=== PATIENT | female | born 1950 | race Caucasian/White ===

== ENCOUNTER → 2019-11-09 10:24 | Outpatient (CLI) | payer MEDICARE, OTHER, SELFPAY ==
[2019-11-09 11:53] LABS: Add Manual Diff / Slide Review NO; Basophils Absolute Auto 100 /uL (0-100); Basophils Percent Auto 0.8 % (0-2); Eosinophils Absolute Auto 200 /uL (0-450); Hematocrit 43.4 % (36-46); Hemoglobin 14.8 g/dL (12.0-16.0); Lymphocytes Absolute Auto 1000 /uL (1100-4500); Lymphocytes Percent Auto 10.5 % (25-40); Mean Corpuscular HGB Conc 34.1 % (30-36); Mean Corpuscular Hemoglobin 33.5 PG (26-34); Mean Corpuscular Volume 98.2 fL (80-100); Monocytes Absolute Auto 500 /uL (0-900); Monocytes Percent Auto 5.6 % (3-14); Neutrophils Absolute Auto 7300 /uL (1500-7000); Neutrophils Percent Auto 81.1 % (50-75); Platelet Count 260 X10^3/uL (150-400); Red Blood Cell Count 4.41 X10^6/uL (4.0-5.2); Red Cell Distribution Width 14.4 % (11.6-14.8); White Blood Cell Count 9.1 X10^3/uL (4.5-11.0)
== END ==
PROVIDERS: PCP Physician Assistant; Referring Provider Orthopaedic Surgery; Visit Provider Orthopaedic Surgery
DX: Z01.818 Encounter for other preprocedural examination (principal); Z01.812 Encounter for preprocedural laboratory examination
CPT/HCPCS: 36415; 85025; 93005

== ENCOUNTER → 2019-11-17 15:16 | Outpatient (CLI) | payer MEDICARE, OTHER, SELFPAY ==
[2019-11-18 22:37] LABS: COVID19 Sendout Not Detected (Not Detect)
== END ==
PROVIDERS: PCP Physician Assistant; Visit Provider Physician Assistant
DX: Z11.59 Encounter for screening for other viral diseases (principal)
CPT/HCPCS: 87635

== ENCOUNTER 2019-11-20 08:30 | Day surgery (SDC) | payer MEDICARE, OTHER, SELFPAY ==
[2019-11-15 12:39] VITALS: BMI 18.3
[2019-11-20] VITALS (14 sets, daily range): BP systolic 118–144; BP diastolic 55–81; PULSE 103–122; RESP 13–20; TEMP 36.6–37; O2SAT 93–97; BMI 18.3
--- NOTE | 2019-11-20 | DI.RAD.S_ITS ---
PROCEDURE: XR LUMBAR SPINE 1V INDICATIONS: Intraoperative localization TECHNIQUE: 1 views of the lumbar spine were acquired. COMPARISON: [facility], MR, MR LUMBAR SPINE WITHOUT CONTRAST, 08/26/2019, 10:20. FINDINGS: Intraoperative images are present with localization overlying the L4 and L5 spinous processes. IMPRESSION: Intraoperative localization as above. Dictated by: Shania Saba M.D. on 11/20/2019 at 11:31 Approved by: Shania Saba M.D. on 11/20/2019 at 11:32
--- NOTE | 2019-11-20 07:16 | PM.PREOP ---
Pre-operative Note Interval Note History & Physical reviewed/Exam performed by Physician: Yes Changes to H&P: Yes H&P completed within 30 days and has changed as indicated here:: She has a 4 cm firm area on the left arm around a bug bite with approximately 10 x 25 cm cellulitis. Surgery will be canceled due to risk of infection from this and I will put her on antibiotics and try to reschedule the next few weeks.
[2019-11-20] MEDS: LACTATED RINGERS 1,000 ML 42 ML IV (08:45)
--- NOTE | 2019-11-20 08:53 | PM.PREOP ---
Pre-operative Note COVID-19 COVID-19 status: Negative Result date/Date tested (Pos, Neg/Pending): 11/17/19 Interval Note History & Physical reviewed/Exam performed by Physician: Yes Changes to H&P: No
[2019-11-20] MEDS: CEFAZOLIN 2 GM/100 ML FROZ.PIGGY IV ×2 (09:17→17:18)
--- NOTE | 2019-11-20 09:49 | SUR.OPER ---
Prone on spine table, head in foam head support, padded chest and pelvic supports, gel pad at knees, lower legs supported by pillows; nipples, genitalia and toes free of pressure, arms secured on foam padded arm boards at <90 degrees abduction. Tape over blanket at thigh secured to table.
[2019-11-20] MEDS: THROMBIN (RECOMBINANT) 5,000 UNIT VIAL 5000 UNIT TOP (10:06)
[2019-11-20] MEDS: BUPIVACAINE 0.25% (PF) 8 ML, fentaNYL 100 MCG INJ (10:08)
[2019-11-20] MEDS: VANCOMYCIN 1,000 MG VIAL 1000 MG TOP (10:08)
[2019-11-20] MEDS: SODIUM CHLORIDE 0.9% 1,000 ML, GENTAMICIN 80 MG IRR (10:10)
--- NOTE | 2019-11-20 11:33 | P.OP_ITS ---
Operative Date/Time/Diagnoses Date of procedure: 11/20/19 Time of procedure: 11:33 Pre-op diagnosis: Lumbar stenosis with radiculopathy Post-op diagnosis: same Procedure & Clinicians Procedure: L2-3, L3-4, L4-5 laminectomies Use of microscope Placement of epidural catheter Same procedure as scheduled: Yes Indications: [age] year old female with intractable pain from stenosis. They had failed conservative management and requested operative intervention. Risks and benefits of surgery were discussed and appropriate consents were obta ined. Surgeon: Frank Mccloud Airline Flight Attendant: Kandy Toribio Anesthesia Type: General Operative Notes Findings: None Closure Type: primary Specimen(s): none sent Applied: catheter Estimated Blood Loss (mL): 10 Procedure in detail: Patient was brought to the operating room and intubated on the table. A time-out was performed. There were rolled over the well-padded prone position on the Eitan table. The back was prepped and draped in standard sterile fashion. Preoperative antibiotics were given. Using fluoroscopy, a 4 cm incision was made to the well-marked left of the midline at the L4-5 level. We used Bovie to come down to and split the fascia. We then used the [employer] MaX[employer] dilators with fluoroscopy and then opened our retractors. The soft tissue was cleared off with Bovie, a marker was placed, an x-ray was taken to confirm positioning. We then brought in the microscope. A combination of high-speed bur and Kerrison were used to perform a laminectomy from the left-sided L4-5. We carefully depressed the dura and reached across to the opposite side to clear out the central canal. We cleared out the neural foramen. We then moved our retractor up to the L3-4 level. Again a laminectomy was performed decompressing the central canal and foramen. We then went up to the L2-3 level and performed laminectomy decompressing the central canal and foramen. At the end of each level we could sweep the right ankle ball probe cephalad, caudally and into the neural foramen and everything was open. Once everything was adequately decompressed, the wound was copiously irrigated. An epidural catheter was filled with 100 mcg of fentanyl and 8 mL of 0.25% Marcaine. The dura was carefully depressed under the laminotomy site and the catheter was advanced 6 cm cephalad. The retractor was removed and the fascia was closed. The epidural catheter was then injected without resistance and removed. Vancomycin powder was placed in the wound. Superficial and skin were closed. Sterile dressing was placed. The patient was then rolled over, transferred to the stretcher, and brought to recovery room without complications. Complications: none Post-operative Condition: stable Disposition: PACU Plan for aftercare: Up with physical therapy. Overnight admission and plan to discharge tomorrow.
[2019-11-20] MEDS: ONDANSETRON 4 MG/2 ML INJ IV (11:42)
--- NOTE | 2019-11-20 11:52 | SUR.PHASEI ---
Assumed care from LAKHWINDER Fernández. Pt still has slight nausea, delfina duque on chest, pt states this is helping. Had been medicated by LAKHWINDER Fernández
[2019-11-20] MEDS: METOCLOPRAMIDE 10 MG/2 ML INJ IV (12:00)
--- NOTE | 2019-11-20 12:28 | PC.NURSE ---
Day shift: Pt on unit at approx 1230 from PACU.
--- NOTE | 2019-11-20 12:28 | SUR.PHASEI ---
Report called to hussain Mcgraw transported up to room 216 on o2 at 2/l nasal [id number]. Pt left with LAKHWINDER Latham in stable condition.
[2019-11-20] MEDS: LACTATED RINGERS 1,000 ML 125 ML IV ×2 (13:31→21:43)
--- NOTE | 2019-11-20 14:30 | PT.IIE ---
Current Diagnoses Other forms of scoliosis, lumbar region (11/20/19) Spinal stenosis, lumbar region with neurogenic claudication (11/20/19) Surgery Performed Operation Date: 11/20/19 12:15 Actual Procedures p L2-5 Laminectomies - Frank Mccloud MD Medical History (Last Updated 11/15/19 @ 12:43 by Merry Randall RN) Lumbar stenosis with neurogenic claudication (Acute) Other forms of scoliosis, lumbar region (Acute) Physical Therapy Inpatient Evaluation/Re-Eval M1 PT/OT-IP Prior Functional Status Start: 11/20/19 16:00 Freq: NEEDED Status: Active Protocol: Document 11/20/19 16:00 [facility] (Rec: 11/20/19 16:30 [facility] [id number]) Medical Review Prior Functional Status Medical History Reviewed Yes Diet/Fluid Consistency Regular,Thin Liquids Communication Independent. Activities of Daily Living and IADL's Pt states not able to stand for long periods of time and needing to sit between tasks for IADL needs. Pt states was completely independent for all ADl needs, drove, and took her own medications. Social History Household Members spouse Living Arrangements House Number of Stairs To Enter/Railing? 3 steps to enter with no rails . Home Environment Walk in Shower,Tub/Shower Home Equipment Front Wheel Walker,Straight Cane,Long Handled Shoe Horn, Grab Bars In Shower Additional Social History Comment Pt states still works for her . M1 PT/OT-IP Prior Functional Status Start: 11/20/19 17:18 Freq: NEEDED Status: Active Protocol: Document 11/20/19 14:30 AB (Rec: 11/20/19 17:28 AB [id number]) Medical Review Prior Functional Status Medical History Reviewed Yes Diet/Fluid Consistency Regular,Thin Liquids Communication able to make needs known Mobility and Gait pt stated that she is independent with all mobilities and ambulation without AD. Able to drive and still works . 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 Activities of Daily Living and IADL's Per OT note: Pt states not able to stand for long periods of time and needing to sit between tasks for IADL needs. Pt states was completely independent for all ADl needs, drove, and took her own medications. Social History Household Members spouse Living Arrangements House Number of Floors (Floors) One Floor Number of Stairs To Enter/Railing? 3 steps to enter with no rails . 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 M2 PT-IP Current Condition Start: 11/20/19 17:18 Freq: NEEDED Status: Active Protocol: Document 11/20/19 14:30 AB (Rec: 11/20/19 17:28 AB [id number]) Physical Therapy Current Condition Current Condition Evaluation Date 11/20/19 Treatment Diagnosis s/p L2-5 laminectomies; difficulty in walking Onset Date 11/20/19 Precautions Lumbar Precautions Log Roll,No Twisting,Limit Bending,Lifting Restriction of 10 lbs,Gait Belt above Incisional Area Weight Bearing Status Weight Bearing Status Weight Bear as Tolerated M3 PT-IP Subjective Start: 11/20/19 17:18 Freq: NEEDED Status: Active Protocol: Document 11/20/19 14:30 AB (Rec: 11/20/19 17:28 AB [id number]) Subjective Physical Therapy Visit Type Type Initial Evaluation Visit Start Time 14:30 Visit Stop Time 15:05 Total Visit Minutes 35 Number of PLASTER FOREMAN Visits 0 Physical Therapy Visit Comments Patient Comments pt agreed to do PT Therapy Pain Assessment Pain Present Pain Present Denied Pain M4 PT-IP Mobility and Gait Start: 11/20/19 17:18 Freq: NEEDED Status: Active Protocol: Document 11/20/19 14:30 AB (Rec: 11/20/19 17:28 AB [id number]) PT-Bed Mobility Assessment Rolling Type of Rolling Log Rolling Level of Assist Standby Assistance Supine to Sit Supine to Sit Standby Assistance PT-Transfer Assessment Sit to and From Stand Sit to and from Stand Contact Guard Assistance,1 Person Assistance,Use of Upper Extremities Equipment Transfer Assistive Device Gait Belt,Front Wheeled Walker Orthotic/Prosthetic Devices or Brace: No Transfers Transfer Destination Chair Transfer Technique ambulated using FWW Transfer Ability Level of Assist Contact Guard Assistance,1 Person Assistance,Use of Upper Extremities Comments Mobility Comments educated pt on back precautions and log roll bed mobility. 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 BP supine: 142/69. completed supine to sit SBA and cues for techniques. pt was able sit on EOB SBA. c/o slight dizziness. BP: 127/71. pt was able to sit for a few more minutes and stated that dizziness dissipated. BP checked: 128/71. pt completed sit to stand CGA and ambulated in room ~ 30 ft and agreed to sit up on chair. positioned pt on chair. call light and table placed within reach. Gait Assessment Gait Gait Assistance Required: Contact Guard Assist Distance (Feet) 30 Able to Maintain Weight Bearing Status Yes During Gait Assistive Devices Assistive Device Gait Belt,Front Wheeled Walker Orthotic/Prosthetic Devices or Brace: No Gait Deviations General Gait Pattern Antalgic,Decreased Stride Length,Decreased Feet Clearance Factors Limiting Gait Function Factors Limiting Gait Function Decreased Activity Tolerance, Decreased Strength,Limited Range of Motion,Poor Balance, Poor Safety Awareness PT-Balance Assessment Sitting Balance and Reactions Static Sitting Balance Ability Good Dynamic Sitting Balance Ability Good Standing Balance and Reactions Static Standing Balance Ability Fair Dynamic Standing Balance Ability Fair Device Used FWW M5 PT-IP Objective Assessments Start: 11/20/19 17:18 Freq: NEEDED Status: Active Protocol: Document 11/20/19 14:30 AB (Rec: 11/20/19 17:28 [id number]) Orientation Orientation/Cognition Level of Alertness Alert Orientation Name,Place,Situation Language Function Ability No Deficits Noted Safety Awareness Decreased Safety Awareness Memory Description No Deficits Noted Gross Range of Motion Lower Extremity ROM Assessment Within Functional Limits Strength Lower Extremity Strength Assessment Within Functional Limits Sensation Assessment Sensation Gross Sensation WNL Muscle Tone Muscle Tone WNL Yes M6 PT-IP Treatment Start: 11/20/19 17:18 Freq: NEEDED Status: Active Protocol: Document 11/20/19 14:30 AB (Rec: 11/20/19 17:28 AB [id number]) Physical Therapy Treatment Education Education Provided Precautions,Weight Bearing Status,Post-Op Packet,Safety M7 PT-IP Assessment and Plan Start: 11/20/19 17:18 Freq: NEEDED Status: Active Protocol: Document 11/20/19 14:30 AB (Rec: 11/20/19 17:28 AB [id number]) PT Summary Assessment and Plan Potential Rehabilitation Potential Good Status of Condition at Evaluation Stable Summary Impairments ROM,Strength,Balance,Bed Mobility,Transfers,Gait, Activity Tolerance Assessment Summary pt requires CGA with mobility using FWW and plans to go home with spouse to assist her. will conduct caregiver training when appropriate. pt also has to complete stair climbing training prior to d/c home. will continue to assess progress. Goals Bed Mobility Goal Independent Transfer Goal Independent,Front Wheeled Walker Gait Goal Independent,Front Wheel Walker Gait Distance 200 Other Goals up/down 3 steps using SPC/INVESTIGATIVE SHOPPER CGA Days to Meet Goals 5 Frequency of Treatment Frequency Of Treatment Twice a Day Treatment Plan Physical Therapy Treatment Plan Bed Mobility Training,Transfer Training,Gait Training, Therapeutic Exercise,Balance Retraining,Post Op Education, Discharge Planning,Hot or Cold Pack,Neuromuscular Re-ed, Coordination Retraining,Manual Therapy Recommendations To Nursing Amount of Assist Needed 1 Person Assist Discharge Recommendations PT Discharge Recommendations Home with Assistance Transportation Needs at Discharge Private Vehicle
[2019-11-20] MEDS: HYDROCODONE/ACET 5/325 TABLET 1 TAB PO (16:00)
--- NOTE | 2019-11-20 16:00 | OT.IP.EVAL ---
Current Diagnoses Other forms of scoliosis, lumbar region (11/20/19) Spinal stenosis, lumbar region with neurogenic claudication (11/20/19) Surgery Performed Operation Date: 11/20/19 12:15 Actual Procedures p L2-5 Laminectomies - Frank Mccloud MD Past Medical History (Last Updated 11/15/19 @ 12:43 by Merry Randall RN) Lumbar stenosis with neurogenic claudication (Acute) Other forms of scoliosis, lumbar region (Acute) Occupational Therapy Inpatient Evaluation/Re-Eval M1 PT/OT-IP Prior Functional Status Start: 11/20/19 16:00 Freq: NEEDED Status: Active Protocol: Document 11/20/19 16:00 [facility] (Rec: 11/20/19 16:30 [facility] [id number]) Medical Review Prior Functional Status Medical History Reviewed Yes Diet/Fluid Consistency Regular,Thin Liquids Communication Independent. Activities of Daily Living and IADL's Pt states not able to stand for long periods of time and needing to sit between tasks for IADL needs. Pt states was completely independent for all ADl needs, drove, and took her own medications. Social History Household Members spouse Living Arrangements House Number of Stairs To Enter/Railing? 3 steps to enter with no rails . Home Environment Walk in Shower,Tub/Shower Home Equipment Front Wheel Walker,Straight Cane,Long Handled Shoe Horn, Grab Bars In Shower Additional Social History Comment Pt states still works for her . M2 OT-IP Current Condition Start: 11/20/19 16:00 Freq: Status: Active Protocol: Document 11/20/19 16:00 [facility] (Rec: 11/20/19 16:30 [facility] [id number]) Occupational Therapy Current Condition Current Condition Evaluation Date 11/20/19 Treatment Diagnosis Lumbar stenosis, s/p L2-3, L3- 4, L4-5 laminectomies Diagnosis Onset Date 11/20/19 Post Operative Precautions Lumbar Precautions Log Roll,No Twisting,Limit Bending,Lifting Restriction of 10 lbs,Gait Belt above Incisional Area M3 OT- IP Subjective and Pain Start: 11/20/19 16:00 Freq: Status: Active Protocol: Document 11/20/19 16:00 [facility] (Rec: 11/20/19 16:30 [facility] [id number]) OT- Subjective Occupational Therapy Visit Type Type Initial Evaluation Visit Start Time 15:31 Visit Stop Time 16:00 Total Visit Minutes 29 Notes Pt's present in the room. Occupational Therapy Visit Comments Patient Comments Pt sitting up in the recliner and agreed to do OT eval. Patient/Caregiver Goals TO go home. OT Pain Assessment Pain When Pain Assessed At Rest Pain Present Pain Present Pain Reported Location Back Intensity 3 Scale Used Numeric (0 - 10) M4 OT- IP ADL's Start: 11/20/19 16:00 Freq: Status: Active Protocol: Document 11/20/19 16:00 [facility] (Rec: 11/20/19 16:30 [facility] [id number]) OT [id number] Comments OT Self-Feeding Comments NOt at meal time. OT ADL-Grooming Comments OT Grooming Comments Pt states already did all her grooming needs prior. OT ADL-Oral Care Comments Oral Care Comments Educated pt to spit into a cup or lean at her hips to spit into the sink to ensure follow through of back precautions. OT ADL-Dressing General Eval Lower Body Dressing Ability Maximum Assistance Areas Needing Assistance Socks Comments OT Dressing Comments Educated pt on use of therapist physical and socks aid to help dylan/ doff her socks. Pt states already has a long handle shoe horn at home. In addition pt 's to assist as needed . OT ADL-Toileting General Evaluation Toileting Ability Standby Assistance Comments OT Toileting Comments Pt able to lean to wipe however to go over possible option of getting a toilet paper aid tomorrow. Pt tried to stand and wipe but ended up twisting too much to be able to reach appropriately. Suggested for pt wear pads at night to ensure that she does not have to chahal to the toilet. Pt states she has to get up twice at night. OT ADL-Bathing Comments OT Bathing Comments Pt may benefit from a shower chair. Pt has a tub/shower with grab bar or 's bathroom in a walk in shower. To try showering tomorrow for OT to best determine equipment needs. M5 OT- IP IADL's Start: 11/20/19 16:00 Freq: Status: Active Protocol: Document 11/20/19 16:00 [facility] (Rec: 11/20/19 16:30 [facility] [id number]) OT-Instrumental Activities of Daily Living Home Safety Awareness Awareness of Need for Assistance at Home Good Awareness Ability to Problem Solve Emergency Able to Problem Solve Situations Money Management Money Management Comments Pt's does all the bill paying. Meal Preparation Meal Preparation Comments Pt to assist for needs . Mangle Catcher Mangle Catcher Comments Pt to assist for needs . M6 OT- IP Functional Cognition Start: 11/20/19 16:00 Freq: Status: Active Protocol: Document 11/20/19 16:00 [facility] (Rec: 11/20/19 16:30 [facility] [id number]) Cognitive Factors Limiting Selfcare Function Cognitive Ability Level of Alertness Alert Patient Orientation Name,Age,Birthday,Month,Date, Year,Day of Week,Place, Situation Attention Span Ability Capable of Focused Attention, Capable of Sustained Attention Ability to Follow Commands Able to Follow Multi-Step Commands Memory Description No Deficits Noted Safety Awareness Decreased Recall of Precautions,Decreased Ability to Apply Precautions Cognitive Comments Cognitive Assessment Comments Pt initially not able to remember all back precautions initially and then able to recall all. Pt tends to twist a little when trying to demonstrate wiping on the toilet. OT- Vision and Hearing OT- Hearing Assessment OT- Hearing Assessment WFL OT- Vision Assessment Visual Acuity Glasses All The Time M7 OT- IP Mobility and Balance Start: 11/20/19 16:00 Freq: Status: Active Protocol: Document 11/20/19 16:00 [facility] (Rec: 11/20/19 16:30 [facility] [id number]) OT-Transfer Assessment Sit to and From Stand Sit to and from Stand Contact Guard Assistance Transfers Transfer Ability Contact Guard Assistance Technique Transfer Destination Bed,Chair,Toilet Transfer Technique Stand Step Pivot Devices Transfer Assistive Devices Gait Belt,Front Wheeled Walker Comments Mobility Comments CGA to stand to FWW and able to walk to the bathroom and back to the recliner with good safety. OT- Balance Assessment Sitting Balance and Reactions Static Sitting Balance Ability Normal Dynamic Sitting Balance Ability Good Standing Balance and Reactions Static Standing Balance Ability Good M8 OT- IP Objective Assessments Start: 11/20/19 16:00 Freq: Status: Active Protocol: Document 11/20/19 16:00 [facility] (Rec: 11/20/19 16:30 [facility] [id number]) OT Gross Range of Motion Upper Extremity Range of Motion Assessment Within Functional Limits OT Strength Upper Extremity Strength Assessment Within Functional Limits OT-Muscle Tone Assessment Muscle Tone WNL Yes M9 OT- IP Assessment and Plan Start: 11/20/19 16:00 Freq: Status: Active Protocol: Document 11/20/19 16:00 [facility] (Rec: 11/20/19 16:30 [facility] [id number]) OT Summary Assessment and Plan Potential Rehabilitation Potential Good Analytic Complexity at Evaluation Low Summary OT Impairments Pain,Balance,Functional Mobility,Dressing,Toileting, Bathing,Toilet Transfers, Shower Transfers,Activity Tolerance Progress Towards Goals Progressing Toward Goals Assessment Summary Pt low complexity s/p L2-3, L3 -4, L4-5 laminectomies with main barriers of steps, needing assist for LB dressing , and needing occasional reminders to incorporate back precautions. Pt will benefit to continue to work with OT on back precautions and equipment needs for ADl's tomorrow. OT to do showering with pt tomorrow in addition to caregiver training with pt. Pt to go home with to assist when medically stable. Goals Grooming Goal Independent Dressing Goal Independent Toileting Goal Independent Bathing Goal Independent Toilet Transfer Goal Independent Shower Transfer Goal Independent Patient/Caregiver Education Goal Caregiver Independent Assisting Patient Days to Meet Goals 3 Frequency of Treatment Frequency Of Treatment Once a Day Treatment Plan OT Treatment Plan ADL Training,Functional Mobility,Patient/Family Education,Discharge Planning Other Treatment Recommendations and Next Shower and caregiver training Treatment Focus Discharge Recommendations OT Discharge Recommendations Home with Assistance Home Equipment Needs Shower chair, LB dressing equipment Transportation Needs at Discharge Private Vehicle
[2019-11-20] MEDS: INSULIN ASPART 100 UNIT/ML INSULN PEN SUBCUT ×2 (17:31→20:28)
[2019-11-20] MEDS: GABAPENTIN 600 MG TABLET PO (20:29)
[2019-11-20] MEDS: METFORMIN HCL 500 MG TABLET PO (20:29)
[2019-11-20] MEDS: POTASSIUM CHLORIDE 10 MEQ TAB PO (20:29)
[2019-11-20] MEDS: NAPROXEN 250 MG TABLET 500 MG PO (20:29)
[2019-11-20] MEDS: DOCUSATE 100 MG CAPSULE PO (20:29)
[2019-11-20] MEDS: SENNOSIDES 8.6 MG TABLET 17.2 MG PO (20:29)
[2019-11-20] MEDS: HYDROCODONE/ACET 5/325 TABLET 2 TAB PO (21:33)
[2019-11-21] MEDS: CEFAZOLIN 2 GM/100 ML FROZ.PIGGY IV (00:48)
[2019-11-21 03:22] VITALS: BP 122/74; PULSE 102; RESP 16; TEMP 36.2; O2SAT 94
[2019-11-21 05:57] LABS: Hematocrit 34.5 % (36-46); Hemoglobin 11.6 g/dL (12.0-16.0)
--- NOTE | 2019-11-21 07:43 | PM.PNPO.1 ---
Subjective Subjective Date Patient Seen: 11/21/19 Time Patient Seen: 07:43 Interval history: She is doing great. Pain /. Feels tremendously better in the left leg. She has already been out of bed twice with PT yesterday. Exam Vital Signs (past 8 hours): - 11/21/19 03:22 Temperature 97.1 F L Pulse Rate 102 H Respiratory Rate 16 Blood Pressure 122/74 Pulse Oximetry 94 Oxygen Delivery Method Room Air Oxygen Flow Rate 0 Const Orientation: alert and oriented x3 Back/Spine/Pelvis Other: Mild quarter-size drainage. 5/5 motor both lower extremities. Objective Labs Result Diagrams: 11/21/19 05:27 Labs: Laboratory Results - last 24 hr 11/21/19 05:27 Hgb 11.6 L Hct 34.5 L Assessment & Plan Post-op Postoperative Procedures: Procedures Operation Date: 11/20/19 12:15 Actual Procedures Side Surgeon p L2-5 Laminectomies Frank Mccloud MD She is doing great. Mobilize again with physical therapy and discharged home today.
[2019-11-21 07:58] VITALS: BP 147/62; PULSE 101; RESP 16; TEMP 37.1; O2SAT 95
[2019-11-21] MEDS: PANTOPRAZOLE 40 MG TABLET PO (08:33)
[2019-11-21 08:34] VITALS: BP 147/62; PULSE 101
[2019-11-21] MEDS: AMLODIPINE 5 MG TABLET PO (08:34)
[2019-11-21] MEDS: INSULIN ASPART 100 UNIT/ML INSULN PEN SUBCUT (08:35)
[2019-11-21] MEDS: FOLIC ACID 1 MG TABLET PO (08:36)
[2019-11-21] MEDS: DOCUSATE 100 MG CAPSULE PO (08:36)
[2019-11-21] MEDS: NAPROXEN 250 MG TABLET 500 MG PO (08:36)
[2019-11-21] MEDS: GABAPENTIN 600 MG TABLET PO (08:36)
[2019-11-21] MEDS: METFORMIN HCL 500 MG TABLET PO (08:37)
[2019-11-21] MEDS: TRIAMTERENE/HCTZ 37.5/25 TABLET 1 CAP PO (08:38)
[2019-11-21] MEDS: predniSONE 2.5 MG TABLET PO (08:39)
[2019-11-21] MEDS: HYDROCODONE/ACET 5/325 TABLET 2 TAB PO (08:47)
--- NOTE | 2019-11-21 09:16 | PC.NURSE ---
Addendum entered by Sharon Klein R.N. 11/21/19 13:00: Discharge summary packet reviewed with pt and her , Aware of S/S of infection, pain management, prescription and pain management review, dressing change on TuesdayNovember 24. No further voiced concerns. Pt states has her follow up appointments already made. Pt left unit with all belongings at 1300 via wheelchair in no distress with [employer] escort. Pt's present to drive pt home. Original Note: Day Shift- Pt A&OX4, able to make her needs known using call light. Stated having 1-2/10 dull aching pain to lower back surgical incision area. Around 0845, pt c/o 3/10 aching pain, starting to increase. [place] 2 tabs given as pt plans to have shower with OT assist and PT stair training this morning. Lower back dressing changed per order. Old dressing removed for approx 25% bloody shadowing drainage.. Incision well approximated with sutures intact with medicated gauze left over incision. No S/S of infection. Area cleansed with NS and pat dry with gauze. Coversite X1 applied, pt tolerated well. Urinary catheter removed at 0725, pt has voided qs X1. No further voiced concerns, expects to go home later today after therapies complete. Pt states her will be coming to pick her up. Pt aware of prescriptions that were sent electronically to [facility] in [place].
--- NOTE | 2019-11-21 09:22 | OT.IP.TRT ---
Current Diagnoses Other forms of scoliosis, lumbar region (11/20/19) Spinal stenosis, lumbar region with neurogenic claudication (11/20/19) Surgery Performed Operation Date: 11/20/19 12:15 Actual Procedures p L2-5 Laminectomies - Frank Mccloud MD Occupational Therapy Treatment Note M2 OT-IP Current Condition Start: 11/20/19 16:00 Freq: Status: Active Protocol: Document 11/20/19 16:00 [facility] (Rec: 11/20/19 16:30 [facility] [id number]) Occupational Therapy Current Condition Current Condition Evaluation Date 11/20/19 Treatment Diagnosis Lumbar stenosis, s/p L2-3, L3- 4, L4-5 laminectomies Diagnosis Onset Date 11/20/19 Post Operative Precautions Lumbar Precautions Log Roll,No Twisting,Limit Bending,Lifting Restriction of 10 lbs,Gait Belt above Incisional Area M3 OT- IP Subjective and Pain Start: 11/20/19 16:00 Freq: Status: Active Protocol: Document 11/21/19 09:47 [facility] (Rec: 11/21/19 09:56 [facility] [id number]) OT- Subjective Occupational Therapy Visit Type Type Treatment Note Visit Start Time 08:43 Visit Stop Time 09:22 Total Visit Minutes 39 Occupational Therapy Visit Comments Patient Comments Pt wanting to shower. Patient/Caregiver Goals To go home. OT Pain Assessment Pain When Pain Assessed At Rest Pain Present Pain Present Pain Reported Location Back Intensity 3 Scale Used Numeric (0 - 10) M4 OT- IP ADL's Start: 11/20/19 16:00 Freq: Status: Active Protocol: Document 11/21/19 09:47 [facility] (Rec: 11/21/19 09:56 [facility] [id number]) OT [id number] Comments OT Self-Feeding Comments NOt at meal time. OT ADL-Dressing General Eval Upper Body Dressing Ability Independent Lower Body Dressing Ability Minimal Assistance Comments OT Dressing Comments Pt able to use LB dressing equipment issued of card setter and sock aid. Pt just needing assist to help line up her socks on the sock aid initially. Pt goo awareness to dylan her weaker side first. Pt states dos wear an ankle brace but did not bring it to the hospital. OT ADL-Toileting Devices Toileting Assistive Devices Commode Comments OT Toileting Comments Pt able to wipe appropriately today. OT ADL-Bathing Bathing Type Bathing Type Shower General Evaluation Bathing Ability Minimal Assistance Comments OT Bathing Comments Pt able to do most of shower while seated with only assist for her back. Pt states able to borrow a shower chair form a friend to use at home in addition, pt's will assist. M5 OT- IP IADL's Start: 11/20/19 16:00 Freq: Status: Active Protocol: Document 11/20/19 16:00 [facility] (Rec: 11/20/19 16:30 [facility] [id number]) OT-Instrumental Activities of Daily Living Home Safety Awareness Awareness of Need for Assistance at Home Good Awareness Ability to Problem Solve Emergency Able to Problem Solve Situations Money Management Money Management Comments Pt's does all the bill paying. Meal Preparation Meal Preparation Comments Pt to assist for needs . Powder Room Attendant Powder Room Attendant Comments Pt to assist for needs . M6 OT- IP Functional Cognition Start: 11/20/19 16:00 Freq: Status: Active Protocol: Document 11/21/19 09:47 [facility] (Rec: 11/21/19 09:56 [facility] [id number]) Cognitive Factors Limiting Selfcare Function Cognitive Ability Level of Alertness Alert Patient Orientation Name,Age,Birthday,Month,Date, Year,Day of Week,Place, Situation Attention Span Ability Capable of Focused Attention, Capable of Sustained Attention Ability to Follow Commands Able to Follow Multi-Step Commands Memory Description No Deficits Noted Safety Awareness Decreased Ability to Apply Precautions Cognitive Comments Cognitive Assessment Comments VC to slow down, pt tends not to remember no twisting. M7 OT- IP Mobility and Balance Start: 11/20/19 16:00 Freq: Status: Active Protocol: Document 11/21/19 09:47 [facility] (Rec: 11/21/19 09:56 [facility] [id number]) OT-Transfer Assessment Sit to and From Stand Sit to and from Stand Standby Assistance Transfers Transfer Ability Standby Assistance Technique Transfer Destination Bed,Chair,Shower Stall,Toilet Devices Transfer Assistive Devices Gait Belt,Front Wheeled Walker Comments Mobility Comments SBA with FWW. Pt able to take a few steps without the walker but encouraged her to just keep using the FWW for safety . OT- Balance Assessment Sitting Balance and Reactions Static Sitting Balance Ability Normal Dynamic Sitting Balance Ability Normal Standing Balance and Reactions Static Standing Balance Ability Good Dynamic Standing Balance Ability Fair M8 OT- IP Objective Assessments Start: 11/20/19 16:00 Freq: Status: Active Protocol: Document 11/20/19 16:00 [facility] (Rec: 11/20/19 16:30 [facility] [id number]) OT Gross Range of Motion Upper Extremity Range of Motion Assessment Within Functional Limits OT Strength Upper Extremity Strength Assessment Within Functional Limits OT-Muscle Tone Assessment Muscle Tone WNL Yes M9 OT- IP Assessment and Plan Start: 11/20/19 16:00 Freq: Status: Active Protocol: Document 11/21/19 09:47 [facility] (Rec: 11/21/19 09:56 [facility] [id number]) OT Summary Assessment and Plan Potential Rehabilitation Potential Good Analytic Complexity at Evaluation Low Summary OT Impairments Pain,Balance,Functional Mobility,Dressing,Bathing Progress Towards Goals Progressing Toward Goals Assessment Summary Pt doing well and able to do bed mobility and transfer with SBA now. Pt with LB dressing equipment able to do most of her dressing needs. Pt still needing safety reminders to incorporate her back precautions during her needs and cues to slow down. Pt has a supportive to assist her at home. Therefore pt looking to go home later today . Goals Days to Meet Goals 1 Frequency of Treatment Frequency Of Treatment Once a Day Treatment Plan OT Treatment Plan Patient/Family Education, Discharge Planning Discharge Recommendations OT Discharge Recommendations Home with Assistance Transportation Needs at Discharge Private Vehicle
--- NOTE | 2019-11-21 10:06 | PT.IPTN ---
Current Diagnoses Other forms of scoliosis, lumbar region (11/20/19) Spinal stenosis, lumbar region with neurogenic claudication (11/20/19) Surgery Performed Operation Date: 11/20/19 12:15 Actual Procedures p L2-5 Laminectomies - Frank Mccloud MD Physical Therapy Treatment Note M2 PT-IP Current Condition Start: 11/20/19 17:18 Freq: NEEDED Status: Discharge Protocol: Document 11/20/19 14:30 [facility] (Rec: 11/20/19 17:28 AB [id number]) Physical Therapy Current Condition Current Condition Evaluation Date 11/20/19 Treatment Diagnosis s/p L2-5 laminectomies; difficulty in walking Onset Date 11/20/19 Precautions Lumbar Precautions Log Roll,No Twisting,Limit Bending,Lifting Restriction of 10 lbs,Gait Belt above Incisional Area Weight Bearing Status Weight Bearing Status Weight Bear as Tolerated M3 PT-IP Subjective Start: 11/20/19 17:18 Freq: NEEDED Status: Discharge Protocol: Document 11/21/19 09:48 [facility] (Rec: 11/21/19 13:34 SP [id number]) Subjective Physical Therapy Visit Type Type Treatment Note Visit Start Time 09:48 Visit Stop Time 10:06 Total Visit Minutes 18 Number of [employer] Visits 1 Physical Therapy Visit Comments Patient Comments pt agreeable to working with PT. Patient Goals Pt wanting to return home with spouse to assist her. Therapy Pain Assessment Pain When Pain Assessed During Mobility Pain Present Pain Present Pain Reported Location Back Intensity 2 Scale Used 2/10 during mobility, 0/10 at rest, premedicated. M4 PT-IP Mobility and Gait Start: 11/20/19 17:18 Freq: NEEDED Status: Discharge Protocol: Document 11/21/19 09:48 [facility] (Rec: 11/21/19 13:34 SP [id number]) PT-Bed Mobility Assessment Rolling Type of Rolling Log Rolling,Bilateral Level of Assist Independent Supine to Sit Supine to Sit Independent Sit to Supine Sit to Supine Independent Scooting Scooting to Edge of Bed Independent PT-Transfer Assessment Sit to and From Stand Sit to and from Stand Independent,Use of Upper Extremities Equipment Transfer Assistive Device None,Gait Belt,Straight Cane, Front Wheeled Walker Orthotic/Prosthetic Devices or Brace: No Transfers Transfer Destination Bed,Chair Transfer Technique pt ambulated using FWW intially then no AD Transfer Ability Level of Assist Independent,Use of Upper Extremities Comments Mobility Comments Pt was inclined in chair when arrived, reported just recently premedicated and no pain at rest. Pt recalled 3/3 precautions and good demonstration throughout tx. Sit <>stand from chair usign BUE I using FWW initially then progressed gait using SPC then no AD with good balance, stable continued I into hallway approx 390 ft total, ascend/ descend 3 stairs x2 with SPC in LUE 1 set then no AD 2nd set SBA, stable. Gait Assessment Gait Gait Assistance Required: Contact Guard Assist Distance (Feet) [phone] Able to Maintain Weight Bearing Status Yes During Gait Assistive Devices Assistive Device None,Gait Belt,Straight Cane, Front Wheeled Walker Orthotic/Prosthetic Devices or Brace: No Gait Deviations General Gait Pattern Antalgic Comments Gait Comments see mobility comments for details. Stair Climbing Assessment Evaluation Level of Assist On Stairs Standby Assistance Devices Stair Climbing Assistive Devices None,Straight Cane Technique/Endurance Stair Climbing Direction Ascend and Descend Stair Climbing Technique Step Over Step,Step to Step Number of Steps Climbed 3 Stair Climbing Set # Repetitions (reps) 2 Comments Stair Climbing Comments Ascend step over step, descend step 2- initially SPC in LUE 1st set, no AD 2nd step. PT-Balance Assessment Sitting Balance and Reactions Static Sitting Balance Ability Normal Dynamic Sitting Balance Ability Normal Standing Balance and Reactions Static Standing Balance Ability Good Dynamic Standing Balance Ability Fair Device Used FWW M5 PT-IP Objective Assessments Start: 11/20/19 17:18 Freq: NEEDED Status: Discharge Protocol: Document 11/20/19 14:30 [facility] (Rec: 11/20/19 17:28 AB [id number]) Orientation Orientation/Cognition Level of Alertness Alert Orientation Name,Place,Situation Language Function Ability No Deficits Noted Safety Awareness Decreased Safety Awareness Memory Description No Deficits Noted Gross Range of Motion Lower Extremity ROM Assessment Within Functional Limits Strength Lower Extremity Strength Assessment Within Functional Limits Sensation Assessment Sensation Gross Sensation WNL Muscle Tone Muscle Tone WNL Yes M6 PT-IP Treatment Start: 11/20/19 17:18 Freq: NEEDED Status: Discharge Protocol: Document 11/21/19 09:48 SP (Rec: 11/21/19 13:34 SP [id number]) Physical Therapy Treatment Education Education Provided Precautions,Weight Bearing Status,Post-Op Packet,Safety M7 PT-IP Assessment and Plan Start: 11/20/19 17:18 Freq: NEEDED Status: Discharge Protocol: Document 11/21/19 09:48 SP (Rec: 11/21/19 13:34 SP [email or web address]) PT Summary Assessment and Plan Potential Rehabilitation Potential Good Status of Condition at Evaluation Stable Summary Impairments ROM,Strength,Balance,Bed Mobility,Transfers,Gait, Activity Tolerance Assessment Summary pt demonstrated I with bed, transfer and gait mobility using FWW initially progressed usign SPC and no AD. Did not feel pt required caregiver training pre DC. Pt completed stair training 3 stairs with SPC initially then no AD SBA, stable. Pt made gains in strength today and recommended can use FWW or SPC to assist activity tolerance longer distances if needed but looked safe and stable during gait end of tx with no AD. Pt is ok to return home with spouse to assist when medicall stable. Goals Bed Mobility Goal Independent Transfer Goal Independent,Front Wheeled Walker Gait Goal Independent,Front Wheel Walker Gait Distance 200 Other Goals up/down 3 steps using SPC/[employer] Days to Meet Goals 5 Frequency of Treatment Frequency Of Treatment Twice a Day Treatment Plan Physical Therapy Treatment Plan Bed Mobility Training,Transfer Training,Gait Training, Therapeutic Exercise,Balance Retraining,Post Op Education, Discharge Planning,Hot or Cold Pack,Neuromuscular Re-ed, Coordination Retraining,Manual Therapy Recommendations To Nursing Amount of Assist Needed Independent Discharge Recommendations PT Discharge Recommendations Home with Assistance Transportation Needs at Discharge Private Vehicle
--- NOTE | 2019-11-21 15:21 | CM.DPNOTE ---
Initial DCP Assessment Note Pt is a 69 yo female, resident of [place], now POD#1 from L2-L5 laminectomies w/ Dr Mccloud PCP: Sabrina Zuleta Payer: LEA/Aidee Reviewed chart, pt discussed in multidisciplinary rounds this morning. Therapy has cleared pt for return home w/family to assist and pt has planned for home, DC order from Ortho has already been initiated this morning. No needs expected from DC planning team although will remain available in case this changes today. REY Barker
== END 2019-11-21 13:00 | disposition home or self-care (01) ==
LOC: OR 08:34 → AC 08:35
PROVIDERS: PCP Physician Assistant; Referring Provider Orthopaedic Surgery; Visit Provider Orthopaedic Surgery
PROC: (CPT 63047; principal; 2019-11-20 12:15)
DX: M48.062 Spinal stenosis, lumbar region with neurogenic claudication (principal); M54.16 Radiculopathy, lumbar region; M41.86 Other forms of scoliosis, lumbar region
CPT/HCPCS: 63047; 63048 ×2; 36415; 72020; 76000; 82962; 85014; 85018; 97116; 97161; 97165; 97530; 97535; A9270; J0690; J1100; J2250; J2405; J2704; J2765; J3010; J8610